=== PATIENT | female | born 1960 | race Caucasian/White ===

== ENCOUNTER → 2017-03-28 | Outpatient (CLI) | payer BC ==
--- NOTE | 2017-04-01 09:12 | MM ---
Reason for exam: screening (asymptomatic). Last mammogram was performed 1 year ago. History: Patient is postmenopausal and history of other cancer. Family history of breast cancer in paternal grandmother. Benign excisional biopsy, September 26, 2006. Excisional biopsy of the right breast. Took hormonal contraceptives for 7 years beginning at age 17. Physical Findings: A clinical breast exam by your physician is recommended on an annual basis and results should be correlated with mammographic findings. MG Screening Mammo w CAD Bilateral CC and MLO view(s) were taken. Prior study comparison: March 14, 2016, bilateral MG screening mammo w CAD. January 26, 2015, bilateral MG screening mammo w CAD. June 05, 2013, bilateral digital screening mammo w/CAD. There are scattered fibroglandular densities. No significant changes when compared with prior studies. ASSESSMENT: Negative, BI-RAD 1 RECOMMENDATION: Routine screening mammogram of both breasts in 1 year.
== END | disposition home or self-care (01) ==
LOC: RADMAMWWP 16:11
PROVIDERS: ATTEND Obstetrics & Gynecology
DX: Z12.31 Encounter for screening mammogram for malignant neoplasm of breast (principal)

== ENCOUNTER → 2018-07-31 | Outpatient (CLI) | payer BC ==
--- NOTE | 2018-07-31 14:02 | MM ---
Reason for exam: screening (asymptomatic). Last mammogram was performed 1 year and 4 months ago. History: Patient is postmenopausal and history of other cancer. Family history of breast cancer in paternal grandmother. Benign excisional biopsy, September 26, 2006. Excisional biopsy of the right breast. Took hormonal contraceptives for 7 years beginning at age 17. Physical Findings: A clinical breast exam by your physician is recommended on an annual basis and results should be correlated with mammographic findings. MG Screening Mammo w CAD Bilateral CC and MLO view(s) were taken. Prior study comparison: March 28, 2017, bilateral MG screening mammo w CAD. March 14, 2016, bilateral MG screening mammo w CAD. There are scattered fibroglandular densities. No significant changes when compared with prior studies. ASSESSMENT: Benign, BI-RAD 2 RECOMMENDATION: Routine screening mammogram of both breasts in 1 year.
== END ==
LOC: RADMAMWWP 08:14
PROVIDERS: ATTEND Obstetrics & Gynecology
DX: Z12.31 Encounter for screening mammogram for malignant neoplasm of breast (principal)
CPT/HCPCS: 77067

== ENCOUNTER → 2019-12-02 | Outpatient (CLI) | payer BC ==
--- NOTE | 2019-12-03 11:09 | MM ---
Reason for exam: screening (asymptomatic). Last mammogram was performed 1 year and 4 months ago. History: Patient is postmenopausal and history of other cancer. Family history of breast cancer in paternal grandmother. Benign excisional biopsy, September 26, 2006. Excisional biopsy of the right breast. Took hormonal contraceptives for 7 years beginning at age 17. Physical Findings: A clinical breast exam by your physician is recommended on an annual basis and results should be correlated with mammographic findings. MG 3D Screening Mammo W/Cad Bilateral CC and MLO view(s) were taken. Prior study comparison: July 31, 2018, bilateral MG screening mammo w CAD. March 28, 2017, bilateral MG screening mammo w CAD. There are scattered fibroglandular densities. There is no discrete abnormality. ASSESSMENT: Negative, BI-RAD 1 RECOMMENDATION: Routine screening mammogram of both breasts in 1 year.
== END | disposition home or self-care (01) ==
LOC: RADMAMWWP 09:52
PROVIDERS: ATTEND Internal Medicine
DX: Z12.31 Encounter for screening mammogram for malignant neoplasm of breast (principal)
CPT/HCPCS: 77063; 77067

== ENCOUNTER → 2020-02-11 | Outpatient (CLI) | payer BC ==
--- NOTE | 2020-02-11 15:31 | CONS ---
CONSULTATION DATE OF SERVICE: 02/11/2020 This patient is a 59-year-old lady who has been re-evaluated in Sleep Center for obstructive sleep apnea-hypopnea syndrome. The last time the patient was seen in the sleep center was in the middle of 2015. Her sleep schedule on weekdays is from 11 p.m. to 6 a.m. and on weekends from 11:30 p.m. to 7 or 7:30 a.m. Usually no problems with falling asleep. No TV in bedroom. She usually sleeps on the side position. She is using her CPAP equipment every night for the whole night. No snoring with the machine. She maybe wakes up from sleep only one time. No history of hypnagogic hallucinations, sleep paralysis or cataplexy. [place] Sleepiness Scale is 1. By history, the patient has extremely severe obstructive sleep apnea with apnea-hypopnea index 86.5 with oxygen desaturation to 46.7%. I checked the patient's CPAP unit. CPAP pressure is 11 cm of water. Usage is 30/30 nights for more than 4 hours. Average usage 8 hours per night. Leak 5 L/minute. Apnea-hypopnea index 1.3, which is absolutely perfect. PAST MEDICAL HISTORY: Positive for hypertension, hyperlipidemia, diabetes mellitus. PAST SURGICAL HISTORY: Breast biopsy, surgery for basal cell carcinoma of the skin, knee surgery, . MEDICATIONS: Metformin, Actos, hydrochlorothiazide, simvastatin. SOCIAL HISTORY: Positive for smoking for 23 pack/years in the past. REVIEW OF SYSTEMS: Basically negative. No sleepiness. Patient sleeps well at night. PHYSICAL EXAMINATION: GENERAL: A pleasant lady without distress. VITAL SIGNS: BP 119/51, HR 72, RR 16, height 5 feet 6-1/2 inches, weight 242.2 pounds, body mass index 38.4, temperature 97.5, oxygen saturation at room air 99%. HEENT: PERRLA, EOMI. Evaluation of oropharynx showed tongue protrudes midline. Low position of soft palate. NECK: Supple. No JVD. Thyroid is not palpable. LUNGS: Clear to percussion and to auscultation. Good air exchange. No wheezing or rhonchi. HEART: S1, S2 regular. No murmurs, gallops or rubs. ABDOMEN: Obese. EXTREMITIES: No clubbing or cyanosis. RN TELE: Awake, alert, and oriented X3. Cranial nerves 2 to 7 intact. There is no fasciculation or atrophy. noted. No focal deficits observed. IMPRESSION: 1. Extremely severe obstructive sleep apnea-hypopnea syndrome with apnea-hypopnea index 86.5 and oxygen desaturation to 46.7%. The patient demonstrated 100% compliance with treatment, benefitting from treatment. 2. Obesity. 3. Hypertension. 4. Hyperlipidemia. 5. Diabetes mellitus. 6. Status post knee surgery. 7. Status post . 8. Status post surgical treatment of basal cell carcinoma of the skin. PLAN: 1. Patient will continue to use CPAP equipment every night for the whole night. 2. Prescription for all necessary CPAP supplies. 3. Watching and losing weight. 4. Sleep hygiene with regular time in bed for at least 7-1/2 to 8 hours. 5. No driving if feeling any sleepiness. Thank you very much for allowing me to participate in the management of your patient. Sincerely, Sinan Bradley MD, PhD, FAASM Diplomat of [place] [employer] [place] [employer] [facility] [place] MMODL / COREYN: [id number] /
== END | disposition home or self-care (01) ==
LOC: SLEEP 11:17
PROVIDERS: ATTEND Internal Medicine
DX: G47.33 Obstructive sleep apnea (adult) (pediatric) (principal); Z99.89 Dependence on other enabling machines and devices; E66.9 Obesity, unspecified; I10 Essential (primary) hypertension; E78.5 Hyperlipidemia, unspecified; E11.9 Type 2 diabetes mellitus without complications; Z98.890 Other specified postprocedural states; Z85.828 Personal history of other malignant neoplasm of skin
CPT/HCPCS: 99211

== ENCOUNTER → 2020-10-06 | Outpatient (CLI) | payer BC ==
--- NOTE | 2020-10-06 19:06 | SFUN ---
SLEEP CENTER FOLLOW UP NOTE DATE OF SERVICE: 10/06/2020 60-year-old lady who has been followed in Sleep Center for treatment of obstructive sleep apnea-hypopnea syndrome. The patient continues to use her CPAP equipment every night for the whole night. No snoring with the machine according to her . The [place] Sleepiness Scale today is 2. No problem with humidifier. The patient continues to use distilled water from the humidifier and clean equipment well. I checked her CPAP unit. CPAP pressure is 11 cm of water. Usage is 30/30 nights for more than 4 hours. Average usage 8 hours per night. Leak is 8 L/minute which is normal range. Apnea-hypopnea index is 1.6, which is perfect. Patient a using an AirFit P10 medium size nasal pillow mask. MEDICATIONS: Metformin extended release 500 mg once a day, amlodipine, hydrochlorothiazide once a day, simvastatin 40 mg once a day, Pioglitazone 30 mg once a day. PHYSICAL EXAMINATION: GENERAL: Patient in no distress. BP 132/59, HR 68, RR 12, height 5 feet 7-1/2 inches, weight 265.4, temperature 97.9, oxygen saturation on room air 95%. Oropharynx low position of soft palate. NECK: Supple, no JVD. Thyroid is not palpable. LUNGS: Clear to percussion and to auscultation. Good air exchange. No wheezing or rhonchi. HEART: S1, S2 regular. No murmurs, gallops, or rubs. ABDOMEN: Soft and nontender. Bowel sounds are present. No organomegaly appreciated. EXTREMITIES: No clubbing or cyanosis. REAL ESTATE INVESTMENT ANALYST: Awake, alert, and oriented X3. Cranial nerves 2 to 7 intact. There is no fasciculation or atrophy. noted. No focal deficits observed. IMPRESSION: 1. Extremely severe obstructive sleep apnea-hypopnea syndrome; apnea-hypopnea index 86.5, oxygen desaturation to 46.7%. The patient demonstrated 100% compliance with treatment, benefitting from treatment. Normal respirations on CPAP, although wt is up . 2. Hypertension. 3. Obesity, patient increase wt on 20 lbs. 4. Diabetes mellitus. 5. Anxiety. 6. Hyperlipidemia. 7. Status post knee surgery. 8. Status post . 9. Status post surgical treatment of basal cell carcinoma of the skin. PLAN: 1. Prescription for all necessary CPAP supplies, including nasal pillow, mask, tube, filters, written today. 2. Patient will continue to use PAP equipment every night for the whole night. 3. Sleep hygiene with regular time in bed for at least 7-1/2 to 8 hours. 4. Precautions related to driving. No driving if feeling sleepiness. 5. I will maintain all necessary prescription for PAP supplies including mask, tube, filters. 6. Watching weight. 7. Follow-up visit in 6 months or earlier if patient has any problems. I spent with patient and record for 30 min. Thank you very much for allowing me to participate in management of your patient. Sincerely, Sinan Bradley MD, PhD, FAASM Diplomat of [place] [employer] [place] [employer] [facility] [place] MMODL / COREYN: [phone] / MTDYue
== END | disposition home or self-care (01) ==

== ENCOUNTER → 2020-12-20 | Outpatient (CLI) | payer BC | END | disposition home or self-care (01) ==

== ENCOUNTER → 2021-04-20 | Outpatient (CLI) | payer BC ==
--- NOTE | 2021-04-20 15:03 | SFUN ---
SLEEP CENTER FOLLOW UP NOTE DATE OF SERVICE: 04/20/2021 61-year-old lady has been followed in Sleep Center for treatment of obstructive sleep apnea-hypopnea syndrome. The patient continued to use her CPAP equipment every night, does not snore with the machine according to her , and getting her supplies in time. Her [place] Sleepiness Scale today is 4, which is normal. I checked CPAP unit. CPAP pressure is 11 cm of water. Usage is 100% of nights more than 4 hours, average 7.9 hours per night. Leak is very minimal 7 L/minute. Apnea-hypopnea index is 1.6 which is perfect. MEDICATIONS: Metformin 500 mg once a day. Pioglitazone 30 mg once a day, simvastatin 40 mg once a day, amlodipine hydrochlorothiazide 20-12.5 mg once a day. PHYSICAL EXAMINATION: GENERAL: Patient in no distress. BP 129/81, HR 67, RR 15, height 5 feet 6-1/2 inches, weight 270 pounds, body mass index 42.9, temperature 97.5, oxygen saturation at room air 97%. Oropharynx: Low position of soft palate. NECK: Supple, no JVD. Thyroid is not palpable. LUNGS: Clear to percussion and to auscultation. Good air exchange. No wheezing or rhonchi. HEART: S1, S2 regular. No murmurs, gallops, or rubs. ABDOMEN: Soft and nontender. Bowel sounds are present. No organomegaly appreciated. EXTREMITIES: No clubbing or cyanosis. BATCHER OPERATOR: Awake, alert, and oriented X3. Cranial nerves 2 to 7 intact. There is no fasciculation or atrophy. noted. No focal deficits observed. IMPRESSION: 1. Extremely severe obstructive sleep apnea-hypopnea syndrome. Apnea-hypopnea index 86.5 with oxygen desaturation to 46.7%. The patient demonstrated great compliance with treatment. Normal respiration on CPAP. 2. Obesity; body mass index 42.9. Patient increased her weight on 5 pounds since previous visit. 3. Hypertension. 4. Diabetes mellitus. 5. Anxiety. 6. Hyperlipidemia. 7. Status post . 8. Status post knee surgery. 9. Status post surgical treatment of basal cell carcinoma of the skin. PLAN: 1.Replace air filter may be immediately. It is in bed condition 1. Patient will continue to use PAP equipment every night for the whole night. 2. Sleep hygiene with regular time in bed for at least 7-1/2 to 8 hours. 3. Precautions related to driving. No driving if feeling sleepiness. 4. I will maintain all necessary prescription for PAP supplies including mask, tube, filters. 5. Watching weight. 6. Follow-up visit in 6 months or earlier if patient has any problems. Sinan Bradley MD, PhD, FAASM Diplomat of [employer] Sleep Medicine Board of [employer] of Internal Medicine [employer] [facility] [place] MMODL / IJN: [id number] /
== END ==
LOC: SLEEP 10:37
PROVIDERS: ATTEND Internal Medicine
DX: G47.33 Obstructive sleep apnea (adult) (pediatric) (principal); G47.36 Sleep related hypoventilation in conditions classified elsewhere; E66.9 Obesity, unspecified; I10 Essential (primary) hypertension; E11.9 Type 2 diabetes mellitus without complications; F41.9 Anxiety disorder, unspecified; E78.5 Hyperlipidemia, unspecified; Z87.59 Personal history of other complications of pregnancy, childbirth and the puerperium; Z98.890 Other specified postprocedural states; Z68.41 Body mass index [BMI] 40.0-44.9, adult; Z99.89 Dependence on other enabling machines and devices; Z85.828 Personal history of other malignant neoplasm of skin; Z79.84 Long term (current) use of oral hypoglycemic drugs; Z79.899 Other long term (current) drug therapy; Z87.891 Personal history of nicotine dependence

== ENCOUNTER → 2022-01-08 | Outpatient (CLI) | payer BC ==
--- NOTE | 2022-01-09 10:32 | MM ---
Reason for Exam: Screening (asymptomatic). Last screening mammogram was performed 12 month(s) ago. Patient History: Menarche at age 11. First Full-Term at age 24. Postmenopausal. Other cancer. Hormonal Contraceptives for 7 years from age 17 until age 24. Benign Excisional Biopsy. Excisional Biopsy on the Right side. Paternal grandmother had breast cancer. Risk Values: Noa 5 year model risk: 2.6%. NCI Lifetime model risk: 11.3%. Prior Study Comparison: 07/31/2018 Bilateral Screening Mammogram, [facility]. 12/02/2019 Bilateral Screening Mammogram, [facility]. 12/20/2020 Bilateral Screening Mammogram, [facility]. Tissue Density: There are scattered fibroglandular densities. Findings: Analyzed By CAD. There is no suspicious group of microcalcifications or new suspicious mass in either breast. Benign round appearing calcifications within the left breast. Overall Assessment: Benign, BI-RAD 2 Management: Screening Mammogram of both breasts in 1 year. A clinical breast exam by your physician is recommended on an annual basis and results should be correlated with mammographic findings. Electronically signed and approved by: Mark Anthony Rojas D.O.
== END | disposition home or self-care (01) ==
LOC: RADMAMWWP 16:56
PROVIDERS: ATTEND Obstetrics & Gynecology
DX: Z12.31 Encounter for screening mammogram for malignant neoplasm of breast (principal); Z80.3 Family history of malignant neoplasm of breast; Z78.0 Asymptomatic menopausal state
CPT/HCPCS: 77063; 77067

== ENCOUNTER → 2022-02-21 | Outpatient (CLI) | payer BC ==
--- NOTE | 2022-02-21 11:33 | P.PN ---
Subjective DATE: 02/21/2022 FOLLOW UP VISIT. Patient with obstructive sleep apnea hypopnea syndrome return to sleep center for follow-up visit. Information from previous visit have been reviewed. Patient is using PAP equipment every night for the whole night, getting PAP supplies in time. The patient does not have significant problems with the mask, PAP unit and humidification. [place] sleepiness scale is 3. I checked PAP unit. Air filter is in bad shape. PAP unit pressure 11 cm H2O. Usage is 100 % for more then 4 hours, average 8.1 hours per night. Leak is for l/m, which is in acceptable range. Apnea Hypopnea Index is 0.9, which is normal. MEDICATIONS:1. Metformin 500 mg once a day 2. Simvastatin 40 mg once a day 3.. Pioglitazone 30 mg once a day During physical exam: GENERAL: A pleasant patient without any distress. VITAL SIGNS: BP 139/59, HR 66, RR 16, weight 276, height 5 foot 6-1/2 inches, body mass index 43.8, temperature 97.7, oxygen saturation at room air 100 % . HEENT: PERRLA, EOMI.low position of soft palate . NECK: Supple. No JVD. LUNGS: Clear to percussion and to auscultation. Good air exchange. No wheezing or rhonchi. HEART: S1, S2 regular. ABDOMEN: Soft and nontender. Obese EXTREMITIES: No clubbing or cyanosis. PERFECT BINDER SETTER: Awake, alert, and oriented x3. No focal deficit. Impressions: 1. Obstructive sleep apnea-hypopnea syndrome. Patient demonstrated great compliance with treatment, benefiting from treatment. 2. Obesity, patient increase her weight was 6 pounds comparing for the previous visit.. 3. Hypertension. 4. Diabetes mellitus, recent hemoglobin A1c according to patient 6.2. 5. History of anxiety. 6. Hyperlipidemia. 7. Status post . 8. Status post knee surgery. 9. Status post surgical treatment of basal cell carcinoma.. Plan: 1. Continue using PAP equipment every night for the whole night. 2. Air filter needs to be changed immediately. To change air filter at least 1-2 times per month. 3. PAP unit should stay lower then position of the head. 4. Advised patient to remove all remaining water from humidifier canister daily and make it dry after each usage. Refill canister with fresh distilled water before each usage. 5. Sleep hygiene with regular time in bed for at least 8 hours. 6. Precautions related to driving. No driving if feel any sleepiness. 7. I will maintain prescription for PAP supplies including mask, tube, filters. 8. Follow up visit in 6 months or earlier if patient has any problems. 9. Watching and losing and losing weight. Thank you very much for allowing me to participate in the management of your patient. Sinan Bradley MD, PhD, FAASM. Diplomat of [place] [employer], Sleep Medicine Board by [place] [employer] Medicine [employer] [facility] [place]
== END ==
LOC: SLEEP 10:56
PROVIDERS: ATTEND Internal Medicine
DX: G47.33 Obstructive sleep apnea (adult) (pediatric) (principal); E66.9 Obesity, unspecified; I10 Essential (primary) hypertension; E11.9 Type 2 diabetes mellitus without complications; F41.9 Anxiety disorder, unspecified; E78.5 Hyperlipidemia, unspecified; Z87.59 Personal history of other complications of pregnancy, childbirth and the puerperium; Z98.890 Other specified postprocedural states; Z85.828 Personal history of other malignant neoplasm of skin; Z99.89 Dependence on other enabling machines and devices; Z79.84 Long term (current) use of oral hypoglycemic drugs; Z68.41 Body mass index [BMI] 40.0-44.9, adult

== ENCOUNTER → 2022-06-28 | Outpatient (CLI) | payer BC ==
--- NOTE | 2022-06-28 16:29 | US ---
EXAMINATION TYPE: US kidneys/renal and bladder DATE OF EXAM: 06/28/2022 COMPARISON: NONE CLINICAL HISTORY: N18.31 CHRONIC KIDNEY DISEASE, STAGE 3A. CKD, no symptoms EXAM MEASUREMENTS: Right Kidney: 11.6 x 5.3 x 5.0 cm Left Kidney: 13.0 x 4.1 x 5.0 cm Right Kidney: prominent renal pelvis Left Kidney: No hydronephrosis or masses seen Bladder: wnl Bilateral Jets seen: right There is no evidence for hydronephrosis at this point in time. Prominent right extrarenal pelvis. No nephrolithiasis is seen. Cortical medullary differentiation is maintained bilaterally. No masses are identified. The urinary bladder is anechoic. Right ureteral jet is seen. IMPRESSION: No hydronephrosis or shadowing renal calculi.
== END | disposition home or self-care (01) ==
LOC: RADUSWWP 16:04
PROVIDERS: ATTEND Internal Medicine
DX: N18.31 Chronic kidney disease, stage 3a (principal)
CPT/HCPCS: 76770

== ENCOUNTER → 2022-12-12 | Outpatient (CLI) | payer BC ==
--- NOTE | 2022-12-12 14:56 | XR ---
EXAMINATION TYPE: XR Hip Complete LT DATE OF EXAM: 12/12/2022 10:20 AM INDICATION: Patient age:Female; 62 years old; Reason for study: M25.552; COMPARISON: None. TECHNIQUE: The left hip was examined in the frontal and lateral projections FINDINGS: No evidence for acute process, joint dislocation or significant soft tissue swelling. Osteo phyte formation of the superior acetabulum of the hips. IMPRESSION: 1. No evidence for acute process. 2. Mild hip osteoarthrosis.
== END | disposition home or self-care (01) ==
LOC: RADXRMAIN 10:04
PROVIDERS: ATTEND Internal Medicine
DX: M16.12 Unilateral primary osteoarthritis, left hip (principal)
CPT/HCPCS: 73502

== ENCOUNTER → 2023-01-09 | Outpatient (CLI) | payer BC ==
--- NOTE | 2023-01-09 08:56 | BD ---
EXAMINATION TYPE: Axial Bone Density DATE OF EXAM: 01/09/2023 CLINICAL HISTORY: 62 years old Female. ICD-10 CODE: I62709 SCREENING OSTEO Height: 66 in Weight: 272 lbs FRAX RISK QUESTIONS: History of Fracture in Adulthood: lt ankle fx age 22 Secondary Osteoporosis: 3. Menopause before 45: age 41 RISK FACTORS HISTORY OF: Active: yes Postmenopausal woman: age 41 MEDICATIONS: Additional Medications: high blood pressure meds, diabetes meds, cholesterol meds EXAM MEASUREMENTS: Bone mineral densitometry was performed using the [employer] System. Bone mineral density as measured about the Lumbar spine is: ----- L1-L4(G/cm2): 1.475 T Score Values are as follows: ----- L1: 1.4 ----- L2: 2.0 ----- L3: 3.4 ----- L4: 2.5 ----- L1-L4: 2.5 Z Score Values are as follows: ----- L1: 1.7 ----- L2: 2.3 ----- L3: 3.7 ----- L4: 2.8 ----- L1-L4: 2.8 Bone mineral density has: Increased 0.7% since study of: 12/20/2020 Bone mineral density about the R hip (g/cm2): 0.928 Bone mineral density about the L hip (g/cm2): 0.967 T Score values are as follows: -----R Neck: -1.0 -----L Neck: -0.9 -----R Total: -0.6 -----L Total: -0.3 Z Score values are as follows: -----R Neck: -0.3 -----L Neck: -0.3 -----R Total: -0.3 -----L Total: 0.0 Bone mineral density has: Decreased -4.3% since study of: 12/20/2020 FRAX%s: The graph provided illustrates a 11.2% chance for a major osteoporotic fx and a 0.7% chance f or the hips probability for fx in 10 years time. IMPRESSION: Normal (Values between +1 and -1 indicate normal bone mass). Consider repeating this study in 5 year s or sooner if there is some new clinical indication. NOTE: T-SCORE=SD OF THE YOUNG ADULT MEAN.
--- NOTE | 2023-01-09 14:56 | MM ---
Reason for Exam: Screening (asymptomatic). Last screening mammogram was performed 12 month(s) ago. Patient History: Menarche at age 11. First Full-Term at age 24. Postmenopausal. Other cancer. Hormonal Contraceptives for 7 years from age 17 until age 24. Benign Excisional Biopsy. Excisional Biopsy on the Right side. Paternal grandmother had breast cancer. Risk Values: Noa 5 year model risk: 2.1%. NCI Lifetime model risk: 8.7%. Prior Study Comparison: 12/02/2019 Bilateral Screening Mammogram, [facility]. 12/20/2020 Bilateral Screening Mammogram, [facility]. 01/08/2022 Bilateral MG 3D screening mammo w/cad, [facility]. Tissue Density: The breast tissue is almost entirely fat. Findings: Analyzed By CAD. There is no suspicious group of microcalcifications or new suspicious mass in either breast. Overall Assessment: Negative, BI-RAD 1 Management: Screening Mammogram of both breasts in [address] [facility] will attempt to contact patient to return for supplemental views and ultrasound if indicated. Patient should continue monthly self-breast exams. A clinical breast exam by your physician is recommended on an annual basis. This exam should not preclude additional follow-up of suspicious palpable abnormalities. Note on Noa scores and lifetime risk: 1. A Noa score greater than 3% is considered moderate risk. If this is the case, consider specialist referral to assess eligibility for a risk reducing agent. 2. If overall lifetime risk for the development of breast cancer is 20% or higher, the patient may qualify for future screening with alternating mammogram and breast MRI. Electronically signed and approved by: Germán Stanton DO
== END | disposition home or self-care (01) ==
LOC: RADMAMWWP 06:45
PROVIDERS: ATTEND Internal Medicine
DX: Z12.31 Encounter for screening mammogram for malignant neoplasm of breast (principal); Z13.820 Encounter for screening for osteoporosis; M85.851 Other specified disorders of bone density and structure, right thigh; Z78.0 Asymptomatic menopausal state; Z80.3 Family history of malignant neoplasm of breast
CPT/HCPCS: 77063; 77067; 77080

== ENCOUNTER → 2024-03-02 | Outpatient (CLI) | payer BC ==
--- NOTE | 2024-03-02 10:13 | XR ---
EXAMINATION TYPE: XR shoulder complete RT DATE OF EXAM: 03/02/2024 9:48 AM CLINICAL INDICATION: Female, 63 years old with history of M25.511 PAIN IN RIGHT SHOULDER; COMPARISON: TECHNIQUE: XR shoulder complete RT; examined in AP, internally rotated and scapular Y projections. FINDINGS: No evidence of acute osseous pathology, joint dislocation, or soft tissue swelling. The remaining po rtions of the visualized chest are unremarkable. IMPRESSION: No acute osseous pathology. [facility], , 03/02/2024 10:10 AM
== END | disposition home or self-care (01) ==
LOC: RADXRMAIN 09:36
PROVIDERS: ATTEND Internal Medicine
DX: M25.511 Pain in right shoulder (principal)

== ENCOUNTER → 2024-09-11 | Outpatient (CLI) | payer MEDICARE ==
--- NOTE | 2024-09-11 13:45 | MM ---
Reason for Exam: Screening (asymptomatic). Last mammogram was performed 1 year(s) and 8 month(s) ago. Patient History: Menarche at age 11. First Full-Term at age 24. Postmenopausal. Other cancer. Hormonal Contraceptives for 7 years from age 17 until age 24. Benign Excisional Biopsy. Excisional Biopsy on the Right side. Paternal grandmother had breast cancer. Risk Values: Noa 5 year model risk: 2.2%. NCI Lifetime model risk: 8.2%. Prior Study Comparison: 07/31/2018 Bilateral Screening Mammogram, [facility]. 12/02/2019 Bilateral Screening Mammogram, [facility]. 12/20/2020 Bilateral Screening Mammogram, [facility]. 01/08/2022 Bilateral MG 3D screening mammo w/cad, [facility]. 01/09/2023 Bilateral MG 3D screening mammo w/cad, [facility]. Tissue Density: There are scattered areas of fibroglandular density. Findings: Analyzed By CAD. There is no suspicious group of microcalcifications or new suspicious mass in either breast. Benign-appearing calcifications. Overall Assessment: Benign, BI-RAD 2 Management: Screening Mammogram of both breasts in 1 year. . Patient should continue monthly self-breast exams. A clinical breast exam by your physician is recommended on an annual basis. This exam should not preclude additional follow-up of suspicious palpable abnormalities. Note on Noa scores and lifetime risk: 1. A Noa score greater than 3% is considered moderate risk. If this is the case, consider specialist referral to assess eligibility for a risk reducing agent. 2. If overall lifetime risk for the development of breast cancer is 20% or higher, the patient may qualify for future screening with alternating mammogram and breast MRI. [facility], , 09/11/2024 1:42 PM. Electronically signed and approved by: Ayush Melissa M.D. [facility]
== END | disposition home or self-care (01) ==
LOC: RADMAMWWP 13:10
PROVIDERS: ATTEND Internal Medicine
DX: Z12.31 Encounter for screening mammogram for malignant neoplasm of breast (principal); R92.323 Mammographic fibroglandular density, bilateral breasts; R92.1 Mammographic calcification found on diagnostic imaging of breast; Z78.0 Asymptomatic menopausal state; Z80.3 Family history of malignant neoplasm of breast; Z92.0 Personal history of contraception
CPT/HCPCS: 77063; 77067